=== PATIENT | female | born 1970 | race Caucasian/White ===

== ENCOUNTER 2017-01-24 08:47 | Inpatient (IN) | payer OTHER ==
[2017-01-24] MEDS ORDERED: NS 1,000 ML IV ONE (09:16)
--- NOTE | 2017-01-24 09:16 | EDPHY ---
H & P Stated Complaint: Transient vision changes in L eye ,couldn't walk straight; resolved now Time Seen by Provider: 01/24/17 09:03 HPI/ROS: CHIEF COMPLAINT: Transient left hemiparesis HISTORY OF PRESENT ILLNESS: 46-year-old female with remote history breast cancer 10 years ago, states that at 7:30 a.m. this morning while getting her children ready to go to school she noticed left hemiparesis "felt weird". She had difficulty walking. Symptoms lasted 2 minutes. She then noticed 10 minutes of left ocular black dots in her visual field, no visual field cuts. She was able to drive her kids to the bus stop without difficulty. She then came to the emergency department via private vehicle. She has not complained headache, chest pain, dyspnea, back pain, nausea, vomiting. No head injury. No major or minor head or neck trauma or manipulation. PRIMARY CARE PROVIDER: Bhavani Jasso REVIEW OF SYSTEMS: A ten point review of systems was performed and is negative with the exception of the items mentioned in the HPI PAST MEDICAL & SURGICAL HISTORY: Remote history of breast cancer 10 years ago , right mastectomy. No history of migraine headache. SOCIAL HISTORY: . Nonsmoker. No drug use. FAMILY HISTORY:multiple family members of multiple malignancies. No family history of CVA or CO PHYSICAL EXAM (Prior to examination, patient consented to physical exam, hands were washed and my usual and customary physical exam procedures followed) 1) GENERAL: Well-developed, well-nourished, alert and oriented. Appears anxious . 2) HEAD: Normocephalic, atraumatic 3) HEENT: Pupils equal, round, reactive to light bilaterally. Sclera anicteric. Funduscopic examination is grossly unremarkable. 4) NECK: Full range of motion, no meningeal signs. 5) LUNGS: Clear auscultation bilaterally, no wheezes, no rhonchi, no retractions. 6) HEART: Regular rate and rhythm, no murmur, no heave, no gallop. 7) ABDOMEN: No guarding, no rebound, no focal tenderness 8) MUSCULOSKELETAL: Moving all extremities, no focal areas of tenderness, no obvious trauma. 9) BACK: no visual or palpable abnormality. 10) SKIN: No rash, no petechiae. 11) Psychiatric: Patient is oriented X 3, there is no agitation. 12) NEURO: Awake, alert, and oriented to person, place and time. Answers questions appropriately. There were no obvious focal neurologic abnormalities. No cerebellar dysfunction. Cranial nerves 2 through to 12 intact. Normal steady gait. Upper and lower extremities bilaterally with strength 5 / 5, reflexes 2+. NIH stroke score of 0. DIFFERENTIAL DIAGNOSIS: In no particular order, including but not limited to CVA, TIA, migraine variant, subarachnoid hemorrhage, tension headache and infectious causes such as meningitis, pharyngitis and sinusitis. - Personal History LMP (Females 10-55): Now Current Tetanus Diphtheria and Acellular Pertussis (TDAP): Yes - Medical/Surgical History Other PMH: neg per pt - Social History Smoking Status: Never smoked Constitutional: Initial Vital Signs Temperature (C) 37 C 01/24/17 08:49 Heart Rate 60 01/24/17 08:49 Respiratory Rate 20 01/24/17 08:49 Blood Pressure 152/107 H 01/24/17 08:49 O2 Sat (%) 100 01/24/17 08:49 O2 Delivery Mode Room Air Allergies/Adverse Reactions: No Known Allergies Allergy (Unverified 01/24/17 08:53) Home Medications: Medication Instructions Recorded Hydrocodone/Acetaminophen [[place] 1 - 2 tab PO Q4H PRN 01/24/17325 (*)] Medical Decision Making - Diagnostics Imaging Results: Imaging Impressions Brain MRI 01/24/17 09:15 Impression: 1. Small cortical infarcts right frontal and parietal lobes probably representing embolic phenomenon. Sequela of watershed ischemia possibly from hypotension is felt to be possible but less likely. 2. No abnormal intracranial enhancement. Findings discussed with Hyacinth Armstrong PAC at 12:26 hour, 01/24/2017. Chest X-Ray 01/24/17 09:16 Impression: No acute abnormality. Images reviewed by myself ED Course/Re-evaluation: 9:18 a.m.: Discussed case with Dr Reynolsd. Currently asymptomatic with NIH stroke score of 0. Discussed possibility of TIA, CVA, migraine variant. Will obtain MRI imaging and further diagnostics and re-evaluate. Patient requests anxiolytics prior to imaging studies. 10:00 a.m.: Re-evaluation, asymptomatic 10:45 a.m.: Re-evaluation asymptomatic 11:30 a.m.: Re-evaluation, asymptomatic 12:35 p.m.: Discussed the imaging results with secondary supervising physician Dr. John Reynolds. Will consult with Neurology. Patient re-evaluated, she is sleeping, easily woken, asymptomatic. 12:38 p.m.: Phone consultation with neurologist Dr. Israel Fernández who recommends admission to the hospitalist service and he will consult - Data Points Laboratory Results: Laboratory Results 01/24/17 09:19 01/24/17 09:19 01/24/17 01/24/17 01/24/17 09:19 09:19 09:19 WBC RBC Hgb Hct MCV MCH MCHC RDW Plt Count MPV Neut % (Auto) Lymph % (Auto) Giles % (Auto) Eos % (Auto) Baso % (Auto) Nucleat RBC Rel Count Absolute Neuts (auto) Absolute Lymphs (auto) Absolute Monos (auto) Absolute Eos (auto) Absolute Basos (auto) Absolute Nucleated RBC Immature Gran % Immature Gran # PT 13.3 SEC SEC (12.0-15.0) INR 1.02 (0.83-1.16) APTT 25.7 SEC SEC (23.0-38.0) Sodium 139 mEq/L mEq/L (134-144) Potassium 4.4 mEq/L mEq/L (3.5-5.2) Chloride 106 mEq/L mEq/L (97-110) Carbon Dioxide 24 mEq/l mEq/l (22-31) Anion Gap 9 mEq/L mEq/L (8-16) BUN 16 mg/dL mg/dL (7-23) Creatinine 0.7 mg/dL mg/dL (0.6-1.0) Estimated GFR > 60 Glucose 99 mg/dL mg/dL (70-100) Calcium 9.3 mg/dL mg/dL (8.5-10.4) Troponin I < 0.012 ng/mL ng/mL (0-0.034) Beta HCG, Qual NEGATIVE 01/24/17 09:19 WBC 5.10 10^3/uL 10^3/uL (3.80-9.50) RBC 5.14 10^6/uL 10^6/uL (4.18-5.33) Hgb 16.2 g/dL g/dL (12.6-16.3) Hct 48.0 % H % (38.0-47.0) MCV 93.4 fL fL (81.5-99.8) MCH 31.5 pg pg (27.9-34.1) MCHC 33.8 g/dL g/dL (32.4-36.7) RDW 13.6 % % (11.5-15.2) Plt Count 199 10^3/uL 10^3/uL (150-400) MPV 9.3 fL fL (8.7-11.7) Neut % (Auto) 40.7 % % (39.3-74.2) Lymph % (Auto) 46.5 % H % (15.0-45.0) Giles % (Auto) 9.8 % % (4.5-13.0) Eos % (Auto) 1.6 % % (0.6-7.6) Baso % (Auto) 1.0 % % (0.3-1.7) Nucleat RBC Rel Count 0.0 % % (0.0-0.2) Absolute Neuts (auto) 2.08 10^3/uL 10^3/uL (1.70-6.50) Absolute Lymphs (auto) 2.37 10^3/uL 10^3/uL (1.00-3.00) Absolute Monos (auto) 0.50 10^3/uL 10^3/uL (0.30-0.80) Absolute Eos (auto) 0.08 10^3/uL 10^3/uL (0.03-0.40) Absolute Basos (auto) 0.05 10^3/uL 10^3/uL (0.02-0.10) Absolute Nucleated RBC 0.00 10^3/uL 10^3/uL (0-0.01) Immature Gran % 0.4 % % (0.0-1.1) Immature Gran # 0.02 10^3/uL 10^3/uL (0.00-0.10) PT INR APTT Sodium Potassium Chloride Carbon Dioxide Anion Gap BUN Creatinine Estimated GFR Glucose Calcium Troponin I Beta HCG, Qual Medications Given: Discontinued Medications Sodium Chloride (Ns) 1,000 mls @ 500 mls/hr IV EDNOW ONE Stop: 01/24/17 11:15 Last Admin: 01/24/17 09:40 Dose: 1,000 mls Lorazepam (Ativan Injection) 1 mg IVP EDNOW ONE Stop: 01/24/17 09:19 Last Admin: 01/24/17 09:41 Dose: 1 mg Departure - Departure Disposition: [facility] Inpatient Acute Clinical Impression: TIA (transient ischemic attack) Qualifiers: Transient cerebral ischemia type: unspecified Qualified Code(s): G45.9 - Transient cerebral ischemic attack, unspecified Condition: Fair NIH Stroke Scale Date of Exam: 01/24/17 Time of Exam: 10:00 Level of Consciousness: Alert LOC Questions: Answers Both LOC Commands: Performs Both Correctly Best Gaze: Normal Visual: No Visual Loss Facial Palsy: Normal Motor Arm-Left: No Drift Motor Arm-Right: No Drift Motor Leg-Left: No Drift Motor Leg-Right: No Drift Limb Ataxis: Absent Sensory: Normal Best Language: No Aphasia Dysarthria: Normal Extinction and Inattention (Neglect): No Abnormality NIH Scale Score: 0
[2017-01-24] MEDS ORDERED: LORazepam 2 MG/ML INJ IVP ONE (09:18)
--- NOTE | 2017-01-24 09:23 | CPEKG ---
Heart Rate: 52 RR Interval: 1154 P-R Interval: 188 QRSD Interval: 82 QT Interval: 448 QTC Interval: 417 P Evangeline: 35 QRS Evangeline: 53 T Wave Evangeline: 72 EKG Severity - NORMAL ECG - EKG Impression: SINUS RHYTHM Electronically Signed By: John Reynolds 24-Jan-2017 15:16:52
[2017-01-24 09:26] LABS: % IMMATURE GRANULYOCYTES 0.4 % (0.0-1.1); ABSOLUTE IMMATURE GRANULOCYTES 0.02 10^3/uL (0.00-0.10); ADD DIFF? NO; ADD MORPH? NO; ADD SCAN? NO; ATYPICAL LYMPHOCYTE FLAG 10 (0-99); FRAGMENT RBC FLAG 0 (0-99); HEMOGLOBIN 16.2 g/dL (12.6-16.3); LEFT SHIFT FLG 0 (0-99); LIPEMIA HEMOLYSIS FLAG 90 (0-99); MEAN CELL HEMOGLOBIN 31.5 pg (27.9-34.1); MEAN CELL HEMOGLOBIN CONCENTR. 33.8 g/dL (32.4-36.7); MEAN CELL VOLUME 93.4 fL (81.5-99.8); MEAN PLATELET VOLUME 9.3 fL (8.7-11.7); PLATELET CLUMPS FLAG 0 (0-99); PLATELET COUNT 199 10^3/uL (150-400); RED BLOOD CELL COUNT 5.14 10^6/uL (4.18-5.33); RED CELL DISTRIBUTION WIDTH 13.6 % (11.5-15.2)
[2017-01-24 09:55] LABS: ANION GAP 9 mEq/L (8-16); CALCIUM 9.3 mg/dL (8.5-10.4); CARBON DIOXIDE 24 mEq/l (22-31); CHLORIDE 106 mEq/L (97-110); CREATININE 0.7 mg/dL (0.6-1.0); GLOMERULAR FILTRATION RATE > 60; GLUCOSE 99 mg/dL (70-100); POTASSIUM 4.4 mEq/L (3.5-5.2); SODIUM 139 mEq/L (134-144)
[2017-01-24 10:03] LABS: TROPONIN I < 0.012 ng/mL (0-0.034)
[2017-01-24] MEDS ORDERED: GADOBUTROL 10 ML VIAL IVP ONE (11:41)
[2017-01-24] MEDS ORDERED: IOPAMIDOL (ISOVUE 370) 100 ML BTL IV ONE (13:05)
[2017-01-24 14:17] LABS: APTT 25.7 SEC (23.0-38.0); INR 1.02 (0.83-1.16); PROTIME(PATIENT) 13.3 SEC (12.0-15.0)
[2017-01-24] MEDS ORDERED: LABETALOL HCL 5 MG/ML 20 ML MDV IVP PRN (14:24)
[2017-01-24] MEDS ORDERED: ASPIRIN 81 MG CHEWABLE TAB ONE (14:25)
[2017-01-24] MEDS ORDERED: ASPIRIN 325 MG TAB PO ONE (14:25)
[2017-01-24] MEDS: ASPIRIN 325 MG TAB PO SCH (14:30)
[2017-01-24] MEDS ORDERED: ACETAMINOPHEN 325 MG TAB PO PRN (14:30)
[2017-01-24] MEDS ORDERED: ONDANSETRON 4 MG/2 ML VIAL IVP PRN (14:30)
[2017-01-24] MEDS ORDERED: LORazepam 0.5 MG TAB PO PRN (14:53)
--- NOTE | 2017-01-24 15:16 | GHP ---
[f rep st] HISTORY AND PHYSICAL DATE OF ADMISSION: 01/24/2017 CHIEF COMPLAINT: Transient left-sided weakness. HISTORY: The patient is a 46-year-old female who noticed at 7:20 this morning, a transient left-annette ed hemiparesis. She was getting her kids ready for school when suddenly she had difficulty walking, and her left leg was not working. Her left leg was weaker than her left arm. She had never had an y numbness. She felt a little lightheaded. She felt a little buzzed, almost like she was intoxicat ed. This entire episode lasted about 2 minutes and then completely resolved. She subsequently drov e her kids to the bus stop without any difficulty and returned home. Upon arriving home, she starte d looking at her phone and realized that her vision from her left eye was splotchy, and she was seei ng black dots. This lasted about 10 minutes. It has not recurred since that time. She called her , and he drove her to the emergency room. She is now completely back to baseline. She never has any chest pain, palpitations, or shortness of breath. PAST MEDICAL HISTORY: 1. Breast cancer, status post mastectomy and chemotherapy, 10 years cancer free. 2. Right arm lymphedema. 3. Squamous or basal cell carcinoma on the forehead, recently resected. 4. Previous hypertension. She states she used to be obese, but hypertension resolved after weight loss. MEDICATIONS: None. ALLERGIES: No known drug allergies. SOCIAL HISTORY: She quit smoking 15 years ago. She drinks 1-2 beers per day. She lives with her usband and children. Her kids are 10 and 11. REVIEW OF SYSTEMS: Complete review of systems obtained. Review of systems is negative regarding co nstitutional, HEENT, GI, pulmonary, cardiovascular, , hematology, musculoskeletal, skin, endocrine , or psych, except for positives and pertinent negatives which were listed as in HPI. FAMILY HISTORY: Her mother of breast cancer in her 70s. Her father of lymphoma in his 70 s. There is no history of blood clots. No history of early MD or stroke. No history of hyperlipid emia. PHYSICAL EXAMINATION: GENERAL: Well-developed, well-nourished female, in no acute distress. [place] rature is 37. Pulse is 60. Blood pressure 152/107, saturating 100% on room air. EYES: Normal con junctivae. Pupils reactive to light. ENT: Normal ears and nose. Hearing intact. Normal teeth. Oropharynx moist. NECK: Trachea midline. No thyromegaly. CHEST: Normal respiratory effort. [place] gs clear to auscultation bilaterally. CARDIOVASCULAR: Regular rate and rhythm. No murmur. No low er extremity edema. ABDOMEN: Soft, nontender. No hepatosplenomegaly. SKIN: Warm, dry, intact. No rash. MUSCULOSKELETAL: No cyanosis or clubbing. Strength is 5/5 upper and lower extremities. NEUROLOGIC: Cranial nerves intact. Normal sensation to light touch. PSYCH: Alert and oriented x3 . Normal mood and affect. Normal judgment and insight. Normal memory. She does seem a little anx ious. LABS: White count 5.1, hematocrit 48.0, platelets 119. Sodium 139, potassium 4.4, chloride 106, bi carb 24, BUN 16, creatinine 0.7, glucose 99. Troponins negative. Beta hCG is negative. EKG viewed by me. My personal interpretation is normal sinus rhythm. No ST-T wave changes. Chest x-ray is ne gative. MRI of the brain shows embolic infarcts in the right frontal and parietal cortex. ASSESSMENT/PLAN: 1. Right frontal and parietal stroke, probably embolic. Clinically, this is most consistent with a TIA since neuro symptoms have all resolved. However, MRI does confirm actual stroke. I will give her an aspirin stat. We will admit to observation for evaluation of possible source. Will monitor on telemetry and check an echocardiogram. Given her very young age and embolic-appearing strokes, c ivettld also consider SULLY. Will check a hypercoagulable workup. She could also be showering emboli fr om a neck vessel. CT angiogram of the neck is performed and pending. Will check a lipid panel. Ne urology has been consulted and will be seeing her. 2. Hypertension. Will allow permissive hypertension to a systolic blood pressure greater than 220 and diastolic blood pressure greater than 120. She denies chronic hypertension and has had her bloo d pressure checked recently at her physician's office without elevation. 3. Breast cancer, status post mastectomy and chemo, 10 years cancer free. 4. Right arm lymphedema. This is mild. CODE STATUS: Full. ADMISSION STATUS: Will admit to observation. Since she has clinically resolved, she may be able to go home tomorrow once workup is complete. DVT PROPHYLAXIS: She is moderate risk. Will place her on subcu Lovenox. /[id number]/MODL
[2017-01-24] MEDS: LORazepam 0.5 MG TAB PO PRN (22:07)
--- NOTE | 2017-01-24 22:16 | GCON ---
[f rep st] CONSULTATION NEUROLOGIC CONSULTATION REFERRING PHYSICIAN: Maricruz Cowart MD HISTORY: The patient is a 46-year-old woman who I am asked to see in neurologic consultation regard ing acute left-sided weakness. The patient says that in the last week, she has noted some variable degrees of blurring in her left eye. It seems to only be the left eye, and she has never had that b efore. Today, she was in the process of getting her kids ready for school when she suddenly had a f eeling of lightheadedness and almost felt as if she were intoxicated, and her left side was not work ing very well. She could not walk very effectively because the left leg felt weak, and the left arm felt weak as well although they would move. This probably lasted 2 minutes and fully resolved. Sh e took the kids to school and left, and then went home and noticed trouble with vision again effecti ng the left eye. It was not a blackout of vision, but more blurring and spotting of the vision, and she noticed in the shower she was having a hard time coordinating her activity, everything simply s eemed more difficult, and the vision was also creating a problem. That lasted about 10 minutes, and she spoke to her and came to the emergency room. She underwent a brain MRI showing evidenc e of acute infarcts in the right hemisphere and did not have any complaints at that point, and her e xam was normal. I was called, and I advised them to admit the patient here for further neurologic a ssessment. She has never had this problem before. She does have a history of breast cancer with ma stectomy 10 years ago and has been in remission. The only medication at home was hydrocodone. She has not had any recent illness. No chest pain, palpitations, or shortness of breath. No history of blood clotting. REVIEW OF SYSTEMS: The 10-point review of systems was unremarkable except for that noted above. FAMILY HISTORY: No family history of unexplained clotting or neurologic disorders. There is a fami ly history of breast cancer and lymphoma. SOCIAL HISTORY: She has a remote history of minimal smoking. No drug use. She had a history of so me obesity, but has resolved that and weight loss led to control of hypertension that she was experi encing. She had some residual right upper extremity lymphedema following the mastectomy and chemoth erapy. She says she may consume 1 or 2 beers per day. She is with 2 children age 10 and 11 . ALLERGIES: No drug allergies. PHYSICAL EXAM: VITAL SIGNS: Blood pressure is 158/113, pulse of 60 respirations 16, temperature 37 .0. GENERAL: She is well-developed in no acute distress. EYES: Clear. NECK: Supple with no bru its or masses. CARDIAC: Regular rate and rhythm. No murmur. EXTREMITIES: No cyanosis or edema. NEUROLOGIC: She is awake, alert and attentive, and oriented to person, place, time, and general si tuation. She has good recent and remote memory, as well as normal concentration and attention and g eneral fund of knowledge. She has a friendly euthymic affect. There is no impairment of her langua ge skill. Pupils 3 mm and reactive. Funduscopic exam unremarkable. There is some mild decreased v isual acuity of the left eye, but no visual field loss is detectable. Normal facial sensation and s trength. Palate elevates symmetrically. Tongue protrudes midline. Hearing is preserved. No defin ite weakness in her neck muscles or shoulder muscles. Proximal upper extremity and lower extremity strength seems to be preserved. With rapid alternating movements, there might be a slight degree of slowing of the left hand, but no drift. She is right-handed. Reflexes are 1+ and symmetric with n o pathologic reflexes. Sensation is preserved for temperature and light touch. No ataxia on finger -to-nose. Her gait is steady. Romberg test is negative. She is able to walk heel-to-toe and can s tep on her heels and toes without significant difficulty. No Babinski signs. I directly reviewed the brain MRI with the patient and showed her the small areas of suspected infar ction. The areas that are identified are mostly at the right frontal and parietal cortical region. No abnormal enhancement is seen. Sinus rhythm on EKG. CBC, electrolytes, and INR are normal. CT angiogram of the neck shows some mild plaquing, but no hemodynamically significant changes and no ev idence of ulcerated plaques. IMPRESSION: The patient has experienced acute neurologic symptoms characterized by temporary left-s ided weakness and dysfunction, and then some blurring of vision in the left eye, although she has no monica about 1 week of relative blurring in the left eye raising the possibility of stroke. The findin gs on the MRI scan are fairly suspicious for acute ischemia with very small areas of restricted diff usion in a fairly wide distribution, which suggest this might be embolic in nature. She has some hy pertension, but this it not the pattern very suspicious for hypertensive encephalopathy. She has so me prior risk factors for vascular disease that have included hypertension. She minimally smoked in the past. We need to consider cardiac sources, but include structural phenomenon, as well as rhyth m disturbances. We will look for a hypercoagulable panel. At this point, her NIH stroke scale is 0 , although there might be some very subtle slowing of rapid alternating movement in the left hand. She will have a lipid panel obtained, as well. A transthoracic echocardiogram will be performed, an d then transesophageal if that were negative. We would certainly consider more prolonged monitoring , although I think it is fairly unlikely that she has a rhythm disturbance like atrial fibrillation. She has been started on aspirin therapy already and DVT prophylaxis, and once we know the lipid pa ellis results we can make determinations on initiating statin therapy. /[id number]/MODL
[2017-01-25] MEDS: LORazepam 0.5 MG TAB PO PRN ×4 (04:32→20:29)
[2017-01-25 04:54] LABS: HEMATOCRIT 43.7 % (38.0-47.0)
[2017-01-25 04:59] LABS: CHOLESTEROL 196 mg/dL (140-200); CHOLESTEROL/HDL RATIO 2.61 RATIO (1.00-4.44); HIGH DENSITY LIPOPROTEIN 75 mg/dL (40-95); LDL/HDL RATIO 1.36 RATIO (1.00-3.22); LOW DENSITY LIPOPROTEIN 102 mg/dL (70-100); NON-HIGH DENSITY LIPOPROTEIN 121 mg/dL (90-129); TRIGLYCERIDE 98 mg/dL (35-135); VERY LOW DENSITY LIPOPROTEINS 19 mg/dL (8-25)
[2017-01-25] MEDS: ENOXAPARIN 40 MG/0.4 ML SYR SC SCH (09:46)
[2017-01-25] MEDS: ATORVASTATIN CALCIUM 40 MG TAB PO SCH (11:10)
[2017-01-25] MEDS: ASPIRIN 325 MG TAB PO SCH (11:10)
[2017-01-25 12:15] VITALS: RESP 16
[2017-01-25] MEDS ORDERED: NS 1,000 ML IV SCH ×2 (13:30→15:00)
--- NOTE | 2017-01-25 13:59 | ECHO ---
[id number] + + [address] : : [place] [address] : : [phone] + Adult Echocardiographic Report + + :Name: DARSHANA ASHTON CStudy Date: 01/25/2017 10:06 AM : : Hospital Admission Number: [id number] Loc ation: 346: :: 1970 Gender: Female Height: 64 in : :Age: 46 yrs Race: WH Weight: 130 lb : :Reason For Study: Eval for Embolic source : : BSA: 1.6 me ters2 : :History: Ischemic stroke with Bubble : + + MMode/2D Measurements \T\ Calculations IVSd: 1.1 cm LVIDd: 4.4 cm FS: 37.6 % Ao root diam: 3.4 cm LVPWd: 1.2 cm LVIDs: 2.7 cm EDV(Teich): 87.6 ml ACS: 1.9 cm ESV(Teich): 28.1 ml EF(Teich): 67.9 % Normal Measurement Values: + + :LVIDd (3.5-5.7cm) IVSd (0.6-1.1cm) LVPWd (0.6-1.1cm) Aortic Root (2.0-3.7cm)Left Atrium (1.5-4.0cm): :LV Vol(d) (76-115ml) LV Vol(s) (29-48ml) Ejec Fraction (50-65%)PV Tahir (0.6- 1.2m/s) TV Tahir (0.4-1.0m/s) : :MV E Tahir (0.8-1.0m/s)MV A Tahir (0.3-1.0m/s)LVOT Tahir (0.7-1.2m/s) Asc Ao Tahir ( 0.9-1.8m/s) : + + Doppler Measurements \T\ Calculations MV E max tahir: Ao V2 max: LV V1 max: PA V2 max: 57.3 cm/sec 88.2 cm/sec 79.0 cm/sec 80.1 cm/sec MV A max tahir: Ao max PG: LV V1 max PG: PA max P.4 cm/sec 3.1 mmHg 2.5 mmHg 2.6 mmHg MV E/A: 1.2 Left Ventricle The left ventricle is normal in size. There is normal left ventricular wall thickness. The left ventricular ejection fraction is normal. There is Doppler evidence for diastolic dysfunction. Ejection Fraction = 68%. The left ventricular wall motion is normal. Right Ventricle The right ventricle is normal in size and function. Atria The left atrial size is normal. Right atrial size is normal. Injection of contrast documented no interatrial shunt. Mitral Valve The mitral valve is normal in structure and function. There is no evidence of mitral valve prolapse. There is no mitral valve stenosis. There is no mitral regurgitation noted. Tricuspid Valve Normal tricuspid valve. There is trace tricuspid regurgitation. Right ventricular systolic pressure is normal. Aortic Valve The aortic valve is normal in structure and function. There is no aortic stenosis. There is no aortic insufficiency. Pulmonic Valve The pulmonic valve is normal in structure and function. There is no pulmonic valvular regurgitation. Great Vessels The aortic root is normal size. Pericardium/Pleural There is a small pericardial effusion. No tamponade. Conclusion A complete two-dimensional transthoracic echocardiogram was performed (2D, M-mode, Doppler and color flow Doppler). The left ventricular ejection fraction is normal. There is Doppler evidence for diastolic dysfunction. Ejection Fraction = 68%. The left ventricular wall motion is normal. The right ventricle is normal in size and function. The left atrial size is normal. Right atrial size is normal. The mitral valve is normal in structure and function. There is no mitral regurgitation noted. Normal tricuspid valve There is trace tricuspid regurgitation. Right ventricular systolic pressure is normal. The aortic valve is normal in structure and function. There is a small pericardial effusion. No tamponade Injection of contrast documented no interatrial shunt. Final Reading Physician: Dr Elidia Martinez electronically signed on 01/25/2017 01:58 PM Ordering Physician: Maricruz Cowart Performed By: Malachi Giron, PRASANNACS
[2017-01-25] MEDS ORDERED: fentaNYL 100 MCG/2 ML INJ ONE ×2 (15:17→15:42)
[2017-01-25] MEDS ORDERED: MIDAZOLAM 2 MG/2 ML VIAL ONE ×2 (15:17→15:37)
--- NOTE | 2017-01-25 18:00 | HOSPPROG ---
Hospitalist Progress Note Assessment/Plan: * CVA - embolic shower - likely from carotid -ZOHREH negative -ASA -hypercoag work-up pending * Hyperlipidemia - LDL 102 -start statin for secondary prevention * HTN - BP very high here -d/w cardiology and neurology -okay to lower BP now -need to start anti-hypertensives - lisinopril 10mg daily * Breast cancer - 10 year remission -off Tamoxifen for 5 years Subjective: No new complaints. Objective: Vital Signs Temp Pulse Resp BP Pulse Ox 36.9 C 57 L 16 133/98 H 97 01/25/17 12:00 01/25/17 12:00 01/25/17 12:00 01/25/17 12:00 01/25/17 12:00 Laboratory Results 01/25/17 04:24 01/24/17 01/25/17 01/26/17 05:59 05:59 05:59 Intake Total 1500 0 Balance 1500 0 PT 13.3 SEC (12.0-15.0) 01/24/17 09:19 INR 1.02 (0.83-1.16) 01/24/17 09:19 case d/w dr. orellaan and dr. burnett regarding plan. bp very high during zohreh, need bp reduction ECHO: negative CTA neck - early vascular disease Laboratory Tests 01/25/17 04:24 LDL Cholesterol, Calc 102 H - Physical Exam Constitutional: no apparent distress, appears nourished, not in pain Cardiovascular: regular rate and rhythym, no murmur, rub, or gallop Respiratory: no respiratory distress, no rales or rhonchi, clear to auscultation Gastrointestinal: normoactive bowel sounds, soft, non-tender abdomen, no palpable masses Skin: no rashes or abrasions, no fluctuance, no induration Neurologic: AAOx3, sensation intact bilaterally Psychiatric: interacting appropriately, not anxious, not encephalopathic, thought process linear ICD10 Worksheet Patient Problems: Problems Problem Status Onset Stroke due to embolism Acute TIA (transient ischemic attack) Acute
[2017-01-25] MEDS: LISINOPRIL 10 MG TAB PO SCH (18:44)
[2017-01-25] MEDS: HYDROCODONE/APAP 5/325 TAB PO PRN ×2 (20:21→20:23)
[2017-01-26] MEDS: LORazepam 0.5 MG TAB PO PRN (03:07)
[2017-01-26 07:33] VITALS: BP 126/103; PULSE 72; TEMP 98.2; O2SAT 95
--- NOTE | 2017-01-26 09:25 | NEUROPROG ---
Assessment: Today's unit time was 20 minutes with [id number] time with the patient and review of information regarding stroke and the treatment plan moving forward. She has experienced stroke of unknown cause but has not had any residual deficits and is on prophylactic therapies moving forward with further lab studies pending. We will follow up on this as an outpatient. I have asked her to see me in the office in about 1 month. She needs to follow up with her primary care provider, Dr. Jasso. Subjective: The patient reports no symptoms at this point. She feels back to her baseline. Objective: Vital Signs Temp Pulse Resp BP Pulse Ox 36.8 C 72 16 126/103 H 95 01/26/17 07:31 01/26/17 07:31 01/26/17 07:31 01/26/17 07:31 01/26/17 07:31 PT 13.3 SEC (12.0-15.0) 01/24/17 09:19 INR 1.02 (0.83-1.16) 01/24/17 09:19 Alert and attentive with clear and fluent speech and NIH stroke scale of 0. The transesophageal echocardiogram is unremarkable. The LDL is mildly elevated and she has been started on Lipitor. She has had some variable hypertension and has started antihypertensive therapy. The hypercoagulable panel is pending. Allergies/Adverse Reactions: No Known Allergies Allergy (Unverified 01/24/17 08:53)
--- NOTE | 2017-01-26 09:33 | ECHO ---
[id number] + + [address] : : [facility] [address] : : [phone] + + Transesophageal Echocardiographic Report + + :Name: DAISHADARSHANA Study Date: 01/25/2017 03:17 PM : : Hospital Admission Number: [id number] : :: 1970 Gender: Female : :Age: 46 yrs Race: WH : :Reason For Study: source of emboli : :History: stroke : + + LV The left ventricle is normal in size and function. There is no thrombus. RV The right ventricle is normal in size and function. Atria The left atrial size is normal. No left atrial mass or thrombus visualized. No thrombus is detected in the left atrial appendage. Right atrial size is normal. Injection of contrast documented no interatrial shunt. Mitral Valve The mitral valve is normal in structure and function. There is no mitral regurgitation noted. Aortic Valve The aortic valve is trileaflet. There is no aortic insufficiency. Pulmonic Valve The pulmonic valve is normal in structure and function. There is no pulmonic valvular regurgitation. Tricuspid Valve The tricuspid valve is normal in structure and function. No tricuspid regurgitation. Pericardium There is no pericardial effusion. Conclusion A 2D transesophageal echocardiogram with Doppler and color flow Doppler was performed. Contrast injection was performed. With heart rate, blood pressure and oximetry monitored the patient was administered IV Versed, fentanyl and the bite block in place the throat was anesthetized with topical spray. The Omniplane transesophageal probe was passed without difficulty. The left ventricle is normal in size and function. No left atrial mass or thrombus visualized. No thrombus is detected in the left atrial appendage. Injection of contrast documented no interatrial shunt. No significant valvular disease Final Reading Physician: Dr Elidia Martinez electronically signed on 01/26/2017 09:31 AM Ordering Physician: Maricruz Cowart Performed By: Dr Elidia Martinez
[2017-01-26] MEDS: ATORVASTATIN CALCIUM 40 MG TAB PO SCH (09:47)
[2017-01-26] MEDS: ASPIRIN 325 MG TAB PO SCH (09:47)
[2017-01-26] MEDS: LISINOPRIL 10 MG TAB PO SCH (09:47)
[2017-01-26] MEDS: ENOXAPARIN 40 MG/0.4 ML SYR SC SCH (09:48)
[2017-01-26 14:11] LABS: PROTEIN S FREE ANTIGEN 87 % (50 - 160)
[2017-01-26 14:46] LABS: ANTITHROMBIN 3 ANTIGEN 73 % (80 - 120)
--- NOTE | 2017-01-26 17:22 | GDS ---
[f rep st] DISCHARGE SUMMARY DISCHARGE DIAGNOSES: 1. Acute embolic stroke, likely from carotid disease. 2. Hyperlipidemia. 3. Hypertension. 4. Breast cancer, 10 years in remission. HISTORY: The patient is a 46-year-old female who presented with transient left leg weakness and vis ion changes. MRI showed embolic-appearing strokes in the right frontal and parietal lobes. Clinica lly, these neuro symptoms resolved quite rapidly, within 10 minutes. She had no recurrence of sympt oms. Neurology was consulted. CT angiogram of the neck did not show significant stenosis, but it d id show some early signs of vascular disease. Blood pressure was very high here, felt to be beyond what we would see with permissive hypertension from the stroke. Her diastolic blood pressures were frequently greater than 100. She was started on a daily aspirin. She had an echo followed by a SULLY that was unremarkable. Full hypercoagulable workup is pending. LDL is 102. Overall, it was felt to be an embolic shower probably from carotid artery. Hopefully with initiatio n of a daily aspirin, statin drug, and blood pressure control, we can prevent future recurrences. S he will follow up closely with Neurology. DISCHARGE MEDICATIONS: Please see computer record for full details. New medications: 1. Aspirin 325 mg p.o. daily. 2. Lipitor 40 mg p.o. daily. 3. Lisinopril 10 mg p.o. daily. DISCHARGE INSTRUCTIONS: 1. Hypercoagulable panel is pending. Please follow up as an outpatient. 2. Follow up with Dr. Fernández in 1 month. Greater than 30 minutes' time was spent on arranging this discharge. Patient seen and examined by sofia tinsley on the day of discharge. /[id number]/MODL
[2017-01-27 08:25] LABS: PROTEIN C ACTIVITY 80 % (70 - 150)
[2017-01-27 09:05] LABS: DILUTE RUSSELLS VIPER VENOM 0.9 ratio (0.0 - 1.1); INR 1.1; INTERPRETATION See Comments; PT 11.7 sec; PTT 28 sec (26 - 36)
[2017-01-27 14:27] LABS: PROTEIN S ACTIVITY 71 % (50 - 160)
[2017-01-27 15:13] LABS: INTERPRETATION See Comments
[2017-01-28 09:40] LABS: PROTEIN C ANTIGEN 78 % (70-150)
== END 2017-01-26 11:26 | disposition home or self-care (01) | DRG 66 ==
LOC: F3N 14:39 → OBSVTOIN 01-25 18:02
PROVIDERS: ADMIT Internal Medicine; ATTEND Internal Medicine
PROC: B245ZZ4 Ultrasonography of Left Heart, Transesophageal (ICD-10-PCS; principal; 2017-01-25)
DX: I63.441 Cerebral infarction due to embolism of right cerebellar artery (principal); E78.5 Hyperlipidemia, unspecified; I10 Essential (primary) hypertension; L04.2 Acute lymphadenitis of upper limb; Z85.3 Personal history of malignant neoplasm of breast; Z85.828 Personal history of other malignant neoplasm of skin
CPT/HCPCS: 85301-90; 85302-90; 85303-90; 85306-90; 92523-GN; 96374; 97161-GP; 97165-GO; A9585; G0378; J1650; J2060; J2250; J3010; Q9967

== ENCOUNTER 2017-01-27 15:23 | Emergency (ER) | payer OTHER ==
--- NOTE | 2017-01-27 15:48 | CPEKG ---
Heart Rate: 65 RR Interval: 923 P-R Interval: 188 QRSD Interval: 82 QT Interval: 400 QTC Interval: 416 P [place]: 24 QRS [place]: 59 T Wave [place]: 68 EKG Severity - NORMAL ECG - EKG Impression: SINUS RHYTHM Electronically Signed By: Zulema Cavazos 30-Jan-2017 17:15:37
--- NOTE | 2017-01-27 15:48 | EDPHY ---
H & P Stated Complaint: Lightheaded, dizzy, left eye disturbance Time Seen by Provider: 01/27/17 15:44 HPI/ROS: CHIEF COMPLAINT: Dizziness HISTORY OF PRESENT ILLNESS: The patient presents to the emergency department with complaints of dizziness and transient blurry vision in her left eye. She has a complicated past medical history and was recently admitted to the hospital for presumed microbiology stroke. She had a fairly extensive workup which demonstrated calcifications within her carotid arteries but no significant stenosis or dissection. She did have small infarcts confirmed on MRI. The patient reportedly developed no residual symptoms and was discharged home on aspirin, blood pressure medications and a statin. The patient developed recurrent symptoms today with a transient sharp right-sided headache. The patient is currently asymptomatic. REVIEW OF SYSTEMS: A comprehensive 10 point review of systems is otherwise negative aside from elements mentioned in the history of present illness. Source: Patient Exam Limitations: No limitations - Personal History Current Tetanus/Diphtheria Vaccine: Yes Current Tetanus Diphtheria and Acellular Pertussis (TDAP): Yes - Medical/Surgical History Hx Asthma: No Hx Chronic Respiratory Disease: No Hx Diabetes: No Hx Cardiac Disease: No Hx Renal Disease: No Hx Cirrhosis: No Hx Alcoholism: No Hx HIV/AIDS: No Hx Splenectomy or Spleen Trauma: No Other PMH: breast cancer, R mastectomy, stroke - Social History Smoking Status: Former smoker - Physical Exam Exam: General Appearance: Alert, no distress Eyes: Pupils equal and round no pallor or injection ENT, Mouth: Mucous membranes moist Respiratory: There are no retractions, lungs are clear to auscultation Cardiovascular: Regular rate and rhythm Gastrointestinal: Abdomen is soft and nontender, no masses, bowel sounds normal Neurological: A&O, normal motor function, normal sensory exam, normal cranial nerves Skin: Warm and dry, no rashes Musculoskeletal: Neck is supple nontender Extremities: symmetrical, full range of motion Psychiatric: Patient is oriented X 3, there is no agitation Constitutional: Initial Vital Signs Temperature (C) 36.9 C 01/27/17 15:34 Heart Rate 68 01/27/17 15:34 Respiratory Rate 14 01/27/17 15:34 Blood Pressure 162/113 H 01/27/17 15:34 O2 Sat (%) 95 01/27/17 15:34 O2 Delivery Mode Room Air Allergies/Adverse Reactions: No Known Allergies Allergy (Unverified 01/27/17 15:28) Home Medications: Medication Instructions Recorded Hydrocodone/Acetaminophen [Glendo 1 - 2 tab PO Q4H PRN 01/24/17 5/325 (*)] Aspirin [Aspirin 325 mg (*)] 325 mg PO DAILY #30 tab 01/26/17 Atorvastatin Calcium [Lipitor 40 40 mg PO DAILY #30 tab 01/26/17 mg (*)] Lisinopril [Zestril 10 mg (*)] 10 mg PO DAILY #30 tab 01/26/17 Medical Decision Making ED Course/Re-evaluation: I reviewed the patient's past medical records, imaging studies and discharge summary. She presents to the ED after a transient episode of blurry vision and confusion. The patient currently has an NIH stroke scale of 0. I did consult Dr. Israel Fernández who was the neurologist involved in the patient's care. I reviewed her presentation today. Given the fact the patient's symptoms have entirely resolved and she has had an extensive workup Dr. Fernández has no further recommendations at this point time. It is certainly possible she had more of a migrainous type phenomenon today. The patient is comfortable being discharged home. She was observed in the emergency department underwent serial examinations by myself over 1.5 hour. Without recurrent neurologic symptoms. Departure - Departure Disposition: Home, Routine, Self-Care Clinical Impression: Stroke due to embolism Condition: Good Instructions: Dizziness (ED) Additional Instructions: 1. Please return to the ED for markedly worsening symptoms, severe headache or other concerns. 2. Please continue your regular medications as prescribed. 3. Please follow up with Dr. Fernández as scheduled. Referrals: Israel Fernández MD [Medical Doctor] - As per Instructions
[2017-01-27 17:13] VITALS: BP 130/101; PULSE 68; RESP 18; O2SAT 98
[2017-01-27 17:21] VITALS: TEMP 98.6
== END 2017-01-27 17:21 | disposition home or self-care (01) ==
LOC: EDUNIT#
DX: I63.9 Cerebral infarction, unspecified (principal); I74.9 Embolism and thrombosis of unspecified artery; Z79.82 Long term (current) use of aspirin; Z85.3 Personal history of malignant neoplasm of breast; Z87.891 Personal history of nicotine dependence

== ENCOUNTER → 2017-03-02 | Outpatient (CLI) | payer OTHER ==
[~2017-03-02] MED LIST: IOPAMIDOL (ISOVUE-300) 100 ML BTL ONE
== END ==
LOC: FIMAGING 15:58
PROVIDERS: ATTEND Internal Medicine Hematology & Oncology
DX: C50.511 Malignant neoplasm of lower-outer quadrant of right female breast (principal)
CPT/HCPCS: Q9967

== ENCOUNTER → 2017-07-05 | Outpatient (CLI) | payer OTHER | LOC: FIMAGING 10:47 | PROVIDERS: ATTEND Internal Medicine | DX: Z12.31 Encounter for screening mammogram for malignant neoplasm of breast (principal); Z85.3 Personal history of malignant neoplasm of breast | CPT/HCPCS: G0202-52 ==